=== PATIENT | male | born 1945 | race Caucasian/White ===

== ENCOUNTER 2016-10-01 13:49 | Emergency (ER) | payer MEDICARE, OTHER ==
--- NOTE | 2016-10-01 14:06 | ER Document Report ---
ED Medical Screen (RME) - General Stated Complaint: FALL/FACIAL AND RIGHT SIDE INJURY Time seen by provider: 14:03 Mode of Arrival: Wheelchair Information source: Patient Notes: 71 yo male presents to ed for fall in the ed waiting room while coughing. Laceration to forehead side of nose. Coughing for 3-4 days. Has hx of htn no CAD TRAVEL OUTSIDE OF THE [place] IN LAST 30 DAYS: No - HPI Onset: Other - in ED waiting room Onset/Duration: Sudden Quality of pain: No pain Severity: None Pain Level: Denies Associated Symptoms: Other - laceration to forehead and face Exacerbated by: Denies Relieved by: Denies Similar symptoms previously: No Recently seen / treated by doctor: No - Related Data Smoking: Non-smoker, Quit greater than 1 year Frequency of alcohol use: None Drug Abuse: None Allergies/Adverse Reactions: No Known Allergies Allergy (Verified 06/04/14 20:02) Physical Exam - Vital signs Vitals: Temp Pulse Resp BP Pulse Ox 97.6 F 72 20 128/86 H 97 10/01/16 13:53 10/01/16 13:53 10/01/16 13:53 10/01/16 13:53 10/01/16 13:53 Course - Vital Signs Vital signs: Temp Pulse Resp BP Pulse Ox 97.6 F 72 20 128/86 H 97 10/01/16 13:53 10/01/16 13:53 10/01/16 13:53 10/01/16 13:53 10/01/16 13:53
[2016-10-01 14:29] LABS: APPEARANCE,URINE SLIGHTLY-CLOUDY; BILIRUBIN,URINE NEGATIVE (NEGATIVE); GLUCOSE, URINE NEGATIVE (NEGATIVE); KETONES,URINE NEGATIVE (NEGATIVE); LEUKOCYTE ESTERASE,URINE NEGATIVE (NEGATIVE); NITRITE,URINE NEGATIVE (NEGATIVE); PROTEIN,URINE NEGATIVE (NEGATIVE); URINE SPECIFIC GRAVITY 1.014; UROBILINOGEN,URINE NEGATIVE mg/dL (<2.0)
[2016-10-01 14:31] LABS: ABSOLUTE EOSINOPHILS # (AUTO) 0.1 10^3/uL (0.0-0.6); ABSOLUTE MONOCYTES (AUTO) 0.8 10^3/uL (0.1-1.4); ABSOLUTE NEUT (AUTO) 3.2 10^3/uL (1.7-8.2); BASOPHILS % (AUTO) 0.7 % (0-2); EOSINOPHILS % (AUTO) 1.6 % (0-6); HEMOGLOBIN 15.5 g/dL (13.5-17.0); HGB HCT DIFFERENCE 1.5; LYMPHOCYTES % (AUTO) 20.3 % (13-45); MEAN CORPUSCULAR HEMOGLOBIN 30.6 pg (27.0-33.4); MEAN CORPUSCULAR HGB CONC 34.5 g/dL (32.0-36.0); MEAN CORPUSCULAR VOLUME 89 fl (80-97); MONOCYTES % (AUTO) 15.1 % (3-13); RED BLOOD COUNT 5.07 10^6/uL (4.35-5.55); RED CELL DISTRIBUTION WIDTH 13.1 % (11.5-14.0); SEGMENTED NEUTROPHILS % (AUTO) 62.3 % (42-78); WHITE BLOOD COUNT 5.1 10^3/uL (4.0-10.5)
[2016-10-01 14:51] LABS: ALANINE AMINOTRANSFERASE 46 U/L (21-72); ALBUMIN 4.5 g/dL (3.5-5.0); ALKALINE PHOSPHATASE 79 U/L (38-126); ANION GAP 14 (5-19); ASPARTATE AMINO TRANSFERASE 31 U/L (17-59); BILIRUBIN,TOTAL 0.8 mg/dL (0.2-1.3); BLOOD UREA NITROGEN 13 mg/dL (7-20); CALCIUM 9.1 mg/dL (8.4-10.2); CARBON DIOXIDE 26 mmol/L (22-30); CHLORIDE 93 mmol/L (98-107); CREATINE KINASE 106 U/L (55-170); CREATININE RESULT 1.14 mg/dL (0.52-1.25); GLUCOSE 89 mg/dL (75-110); POTASSIUM 4.5 mmol/L (3.6-5.0); SODIUM 133.1 mmol/L (137-145); TOTAL PROTEIN 7.1 g/dL (6.3-8.2)
[2016-10-01 15:14] LABS: CREATINE KINASE MB 0.96 ng/mL (<4.55)
[2016-10-01 15:17] LABS: TROPONIN I < 0.012 ng/mL
--- NOTE | 2016-10-01 15:17 | ER Document Report ---
ED Syncope and Near Syncope - General Chief Complaint: Facial Injury Stated Complaint: FALL/FACIAL AND RIGHT SIDE INJURY Time Seen by Provider: 10/01/16 14:27 Mode of Arrival: Wheelchair Information source: Patient Notes: Patient was with his who was a patient in the emergency department he developed a coughing fit. Patient attempted to suppress his cough I'll he walked outside to not disturb other people and had a brief loss of consciousness , falling and hitting his face on the desk. Patient denies any nausea or vomiting. Patient states that his glasses cut his face. Patient denies any chest pain, shortness of breath, or neck pain. Patient denies any problems at this time. Patient does say he's had a cough for the past 4 days. TRAVEL OUTSIDE OF THE [place] IN LAST 30 DAYS: No - HPI Symptoms prior to episode: No: Abdominal pain, Headache, Nausea/vomiting Details of activity: patient was attempting to hold a cough in Pain Level: 0 Context: Lost consciousness - Brief momentary Injury location: Face Current symptoms: None/feels back to normal Similar symptoms previously: No Recently seen / treated by doctor: No - Related Data Allergies/Adverse Reactions: No Known Allergies Allergy (Verified 06/04/14 20:02) Past Medical History - General Information source: Patient - Social History Smoking Status: Never Smoker Chew tobacco use (# tins/day): No Frequency of alcohol use: None Drug Abuse: None Lives with: Spouse/Significant other Family History: None Patient has suicidal ideation: No Patient has homicidal ideation: No - Past Medical History Cardiac Medical History: Reports: Hx Hypercholesterolemia, Hx Hypertension Surgical Hx: Negative Review of Systems - Review of Systems Constitutional: No symptoms reported. denies: Fever EENT: No symptoms reported Cardiovascular: Syncope. denies: Chest pain Respiratory: Cough. denies: Hurts to breathe, Short of breath Gastrointestinal: No symptoms reported. denies: Abdominal pain, Nausea, Vomiting Genitourinary: No symptoms reported Male Genitourinary: No symptoms reported Musculoskeletal: No symptoms reported. denies: Back pain, Neck pain Skin: Other - Facial laceration and abrasions Hematologic/Lymphatic: No symptoms reported Neurological/Psychological: Lost consciousness. denies: Confusion, Headaches Physical Exam - Vital signs Vitals: Temp Pulse Resp BP Pulse Ox 97.6 F 72 20 128/86 H 97 10/01/16 13:53 10/01/16 13:53 10/01/16 13:53 10/01/16 13:53 10/01/16 13:53 - General General appearance: Appears well, Alert In distress: None Notes: PHYSICAL EXAMINATION: GENERAL: Well-appearing and in no acute distress. HEAD: Superficial laceration to right maxillary area, normocephalic. Laceration to forehead, no active bleeding. EYES: sclera anicteric, conjunctiva are normal. Extraocular movements intact. ENT: nares patent. Moist mucous membranes. No dental trauma. NECK: Normal range of motion, supple without lymphadenopathy, no cervical midline tenderness, step-off, or deformity LUNGS: CTAB and equal. No wheezes rales or rhonchi. HEART: Regular rate and rhythm without murmurs ABDOMEN: Soft, nontender, normal bowel sounds, no guarding. EXTREMITIES: Nontender, Normal range of motion, no pitting edema. BACK: No midline tenderness, no step-off or deformity. NEUROLOGICAL: Cranial nerves grossly intact. Normal speech. Normal gait. PSYCH: Normal mood, normal affect. SKIN: Warm, Dry, normal turgor, patient with 1.2 centimeters laceration to forehead, no active bleeding. Superficial 1.5 cm laceration to right maxillary area Course - Re-evaluation Re-evalutation: 10/01/16 15:[address] Jefferson regarding patient presentation. Dr. Jefferson to bedside for examination. Agrees with plan to defer any CT head imaging at this time. - Vital Signs Vital signs: Temp Pulse Resp BP Pulse Ox 98.4 F 71 20 162/91 H 96 10/01/16 17:54 10/01/16 17:54 10/01/16 17:54 10/01/16 17:54 10/01/16 17:54 - Laboratory Result Diagrams: 10/01/16 14:10 10/01/16 14:10 Laboratory results interpreted by me: 10/01/16 10/01/16 10/01/16 14:10 14:10 14:15 Plt Count 142 L Monocytes % 15.1 H Sodium 133.1 L Chloride 93 L Urine Ascorbic Acid 20 H - Diagnostic Test Radiology reviewed: Image reviewed, Reports reviewed Procedures - Laceration/Wound Repair Face Wound length (cm): 1.2 Wound's Depth, Shape: Linear Laceration pre-procedure: Other - chlorhexadine Anesthetic type: Other - let Wound explored: Clean, No foreign body removed Wound Repaired With: Dermabond Layer Closure?: No Post-procedure NV exam normal: Yes Complications: No Discharge - Discharge Clinical Impression: Cough Syncopal episodes Qualifiers: Syncope type: vasovagal syncope Qualified Code(s): R55 - Syncope and collapse Facial laceration Qualifiers: Encounter type: initial encounter Qualified Code(s): S01.81XA - Laceration without foreign body of other part of head, initial encounter Facial abrasion Qualifiers: Encounter type: initial encounter Qualified Code(s): S00.81XA - Abrasion of other part of head, initial encounter Upper respiratory infection Qualifiers: URI type: unspecified URI Qualified Code(s): J06.9 - Acute upper respiratory infection, unspecified Condition: Stable Disposition: HOME, SELF-CARE Instructions: Syncopal Episode ([facility]), Upper Respiratory Illness ([facility]), Facial Laceration ([facility]), Abrasions ([facility]), Care of Steri-Strip Closure ([facility]), Skin Adhesive Closure ([facility]) Additional Instructions: Return immediately for any new or worsening symptoms Followup with your primary care provider, call tomorrow to make a followup appointment Referrals: DEBBIE MEYER MD [Primary Care Provider] - Follow up tomorrow
[2016-10-01] MEDS ORDERED: LIDOCAINE 4%/TETRACAINE 0.5%/EPI 0.18% 5 ML TOPICAL SOLN TOP ONE (16:32)
[2016-10-01 17:57] VITALS: BP 162/91
--- NOTE | 2016-10-01 19:52 | EKG REPORT ---
SEVERITY:- NORMAL ECG - SINUS RHYTHM : Confirmed by: Luis Maldonado 01-Oct-2016 19:50:59
== END 2016-10-01 17:54 | disposition home or self-care (01) ==
LOC: ER 13:49
DX: S01.81XA Laceration without foreign body of other part of head, initial encounter (principal); S00.81XA Abrasion of other part of head, initial encounter; J06.9 Acute upper respiratory infection, unspecified; R55 Syncope and collapse; R05 Cough; W18.39XA Other fall on same level, initial encounter; Y92.238 Other place in hospital as the place of occurrence of the external cause; E78.00 Pure hypercholesterolemia, unspecified; I10 Essential (primary) hypertension
CPT/HCPCS: 36415; 71020; 80053; 81001; 82550; 82553; 84484; 85025; 93005; 93010; 99284; J3490

== ENCOUNTER 2016-12-16 07:26 | Day surgery (SDC) | payer MEDICARE, OTHER ==
[~2016-12-16 07:26] MED LIST: DIPHENHYDRAMINE HCL 50 MG/ML VIAL ONE; NALOXONE HCL INJ/PF 0.4 MG/1 ML SDV ONE; ONDANSETRON HCL INJ/PF 4 MG/2 ML SDV ONE; PROMETHAZINE HCL INJ 25 MG/1 ML VIAL ONE
[2016-12-16] MEDS ORDERED: EPINEPHRINE INJ 1 MG/10 ML DISP.SYRIN ONE (07:27)
[2016-12-16] MEDS ORDERED: GLUCAGON,HUMAN RECOMB 1 MG INJ ONE (07:27)
[2016-12-16] MEDS ORDERED: FLUMAZENIL INJ 0.5 MG/5 ML VIAL IV ONE (07:27)
[2016-12-16] MEDS: MIDAZOLAM 2 MG/2 ML INJ ONE ×2 (08:00→08:04)
[2016-12-16] MEDS: FENTANYL CITRATE INJ/PF 100 MCG/2 ML AMPUL ONE ×3 (08:02→08:05)
--- NOTE | 2016-12-16 08:20 | Operative Report ---
Operative Report DATE OF SURGERY: 12/16/16 Operative Report: The risks, benefits and alternatives of the procedure explained to the patient detail and informed consent is obtained. Patient is taken back to the endoscopy suite and placed in the left, lateral decubital position. Timeout is called. Conscious sedation medications are provided. A rectal examination was done which did not reveal any masses tears or fissures. An Olympus videoscope was inserted into the patient's rectum. His comfort advanced all the way to the cecum. The cecum was identified by the usual anatomical landmarks including the ileocecal valve as well as appendiceal office. Photodocumentation was obtained prep is good. Scope was then sequentially pulled back via the rest evidence of the colon including the ascending colon, hepatic flexure, transverse colon, splenic flexure, descending colon and finally into the rectosigmoid portions of the colon. Retroflexion maneuvers performed. PREOPERATIVE DIAGNOSIS: Colorectal cancer screening. POSTOPERATIVE DIAGNOSIS: Small colon polyp sessile in the transverse colon removed via biopsy forceps. Slightly larger rectosigmoid polyp requiring snare polypectomy. Diverticulosis. Internal hemorrhoids OPERATION: Colonoscopy with snare polypectomy. Colonoscopy with biopsy SURGEON: KOKO VELAZCO ANESTHESIA: Moderate Sedation - 4 mg of Versed, 100 g of fentanyl. Conscious sedation monitoring time 30 minutes. TISSUE REMOVED OR ALTERED: Colon polyp retrieved. COMPLICATIONS: None. ESTIMATED BLOOD LOSS: none. INTRAOPERATIVE FINDINGS: As noted above. PROCEDURE: Patient tolerated the procedure well. No immediate postprocedure complications are noted. Patient is discharged in good condition. Discharge date 12/16/2016. Discharge diet: Regular. Discharge activity: Regular. Five-year surveillance We'll await on biopsies 2-3 week follow-up to discuss findings Patient is instructed to call the office or proceed to the emergency room should there be any further problems or questions.
[2016-12-16 11:39] VITALS: BP 97/69
== END 2016-12-16 09:20 | disposition home or self-care (01) ==
LOC: END 07:26
PROVIDERS: ATTEND Internal Medicine Gastroenterology
PROC: 0DBN8ZX Excision of Sigmoid Colon, Via Natural or Artificial Opening Endoscopic, Diagnostic (ICD-10-PCS; 2016-12-16)
PROC: 0DBL8ZX Excision of Transverse Colon, Via Natural or Artificial Opening Endoscopic, Diagnostic (ICD-10-PCS; principal; 2016-12-16 08:00)
PROC: 0DBP8ZX Excision of Rectum, Via Natural or Artificial Opening Endoscopic, Diagnostic (ICD-10-PCS; 2016-12-16 08:00)
DX: Z12.11 Encounter for screening for malignant neoplasm of colon (principal); K57.30 Diverticulosis of large intestine without perforation or abscess without bleeding; D12.3 Benign neoplasm of transverse colon; K63.5 Polyp of colon; I10 Essential (primary) hypertension; E78.2 Mixed hyperlipidemia; E11.9 Type 2 diabetes mellitus without complications; E78.00 Pure hypercholesterolemia, unspecified; Z79.82 Long term (current) use of aspirin; Z79.899 Other long term (current) drug therapy; Z79.84 Long term (current) use of oral hypoglycemic drugs
CPT/HCPCS: 45380; 45385; 82962; 88305 ×2; J2250; J3010; J1610; J0171; J1200; J2310; J2405; J2550; J3490